=== PATIENT | male | born 1970 | race Caucasian/White ===

== ENCOUNTER → 2017-09-13 | Emergency (ER) | payer BC ==
[~2017-09-13] VITALS: Ht 170.2 cm; Wt 120.3 kg
[~2017-09-13] MED LIST: CIPRO 500MG TA500 MG PO; IBUPROFEN 600M600 MG PO; LORTAB 500 MG-11 TAB PO; VOLTAREN75 MG PO
--- OUTSIDE RECORDS SUMMARY | 2017-09-13 16:21 | External Medical Summary Rpt | CCD ---
Demographics Preferred Language Beninese Marital Status Unknown Gnosticist Affiliation Unknown Race Unknown Ethnic Group Unknown Author Author , JASON GOMEZ Address Unknown Phone Immunization No patient found.
--- OUTSIDE RECORDS SUMMARY | 2017-09-13 16:21 | External Medical Summary Rpt | CCD ---
Author Author [facility] Organization [employer] Address Unknown Phone Unavailable Purpose Continuity of Care Document - through 2016
--- OUTSIDE RECORDS SUMMARY | 2017-09-13 16:21 | External Medical Summary Rpt | CCD ---
Author Author JASON Address Unknown Phone [email or web address] Purpose Continuity of Care Document - through 2016
--- OUTSIDE RECORDS SUMMARY | 2017-09-13 16:21 | External Medical Summary Rpt | CCD ---
Author Author JASON Address Unknown Phone Purpose Continuity of Care Document - through 2016
--- OUTSIDE RECORDS SUMMARY | 2017-09-13 16:21 | External Medical Summary Rpt | CCD ---
Demographics Preferred Language Mauritian Marital Status Unknown Religion Affiliation Unknown Race Unknown Ethnic Group Unknown Author Author , JASON GOMEZ Address Unknown Phone Immunization No patient found.
[2017-09-13 16:37] LABS: URINE BILIRUBIN - DIPSTICK NEGATIVE (NEG); URINE BLOOD NEGATIVE (NEG)
[2017-09-13 17:31] VITALS: BP 140/86
--- NOTE | 2017-09-13 17:31 | Urgent Treatment Center Report ---
History of Present Issue Date/Time Seen by Provider 09/13/17 1704 Visit Reason Pt arrived:Walked Presenting Problem:PT C/O OF RIGHT SIDE FLANK PAIN Location if Accident: Onset of symptoms date/time:/ or onset unknown for:MEDICAL HX UNKNOWN Have you (or family members/close friends) recently traveled outside the [place]? N If Yes, where/when: Have you had exposure to infectious disease within the past month? TB? Other? Specify: c/o right flank pain x 2-3 days. Wakes him from sleep around 2-3 am throbbing then unable to fall back to sleep. Ibuprofen and water and once up, pain resolved and goes on into work. Once back at home and lays down in the evening, pain starts again. This morning, offered pt azo. Urine now orange and for the first day, pain happening during the day. Hx of kidney stones. Reports this is not as severe or as constant and he doesn't believe that is the cause. No fever, nausea, abdominal pain, dysuria or frequency. + urgency. Circumcised and denies possibility of STI. Denies hx of UTIs. No home medications Source patient Exam Limitations no limitations ALLERGIES Uncoded Allergies: INGREDIENT: NO KNOWN - NO KNOWN DRUG ALLERGY (08/13/10) History Medical History General CAD? No Angina: No FL: No Hypertension? No Hyperlipidemia? No CHF? No DVT? No PE? No COPD? No Asthma? No Anemia? No GERD? No Gastric ulcers? No GI Bleed? No Hernia? No Thyroid Problems? No Hypothyroidism? No CVA? No Seizures? No Diabetes? No Renal Insuffiency? No UTI? No Stones? Yes BPH? No GB Disease: No Nephritic Syndrome? No Asplenia? No Hepatitis? No Sickle Cell Disease? No Arthritis? No Migraines? No Cataracts? No Glaucoma? No MRSA? No HIV? No TB? No Anxiety? No Depression? No Cancer? No More? No Immunization HX DT/Tetanus NOT SURE Flu LAST YEAR Pneumonia NEVER Surgical Hx Previous Surgery?Y SCROTAL SURGERY KIDNEY STENT PLACEMENT Family History Family HX Diabetes No CAD No Hypertension No Hyperlipidemia No Cancer Yes TB No Social History Smoking Hx Smoker: Never Smoker Tobacco: No Alcohol Alcohol: No Review of Systems All Other Systems Reviewed and Negative Constitutional see HPI, denies chills, denies malaise, denies weakness Gastrointestinal see HPI, denies diarrhea Genitourinary see HPI. denies: discharge, hematuria, pain (other than flanks), genital lesions. Musculoskeletal see HPI Skin denies lesions, denies lumps, denies rash Psychiatric/Neurological denies headache Physical Exam Vital Signs Vital Signs Date Time Temp Pulse Resp B/P Pulse O2 O2 Flow FiO2 Ox Delivery Rate 09/13 1628 98.0 103 20 140/86 98 General Appearance normal appearance, no apparent distress Respiratory Status No: respiratory distress. Cardiovascular no peripheral edema Gastrointestinal normal bowel sounds, non tender, soft, no organomegaly, no suprapubic tenderness, no bladder distention Back normal inspection, no vertebral tenderness, gait normal, CVA tenderness (R) (mild, more then left), CVA tenderness (L) (minimal) Extremities normal range of motion (BLE) Strength 5 Lower Ext (L), 5 Lower Ext (R) Neurologic alert, oriented x 3 Skin normal color, warm/dry Lymphatic no adenopathy Comments urine cloudy and orange Medical Decision Making LABS/Meds/Orders Pt receiving controlled substance in ED? No Results/Orders Laboratory Tests 09/13/17 1635: Urine Color ORANGE, Urine Appearance Clear, Urine pH 6.0, Ur Specific [place] 1.015, Urine Protein 3+ H, Urine Ketones TRACE H, Urine Blood NEGATIVE, Urine Nitrate POSITIVE H, Urine Bilirubin NEGATIVE, Urine Urobilinogen 1.0, Ur Leukocyte Esterase 1+ H, Urine Glucose 1+ H Orders Procedure Date/time Status CULTURE, URINE 09/13 1721 Active [facility] URINE DIPSTICK 09/13 1635 Complete Departure Departure Time of Disposition 1728 Disposition DC Home or Self Care(routine) Clinical Impression Primary Impression: UTI (urinary tract infection) Qualifiers: Urinary tract infection type: site unspecified Hematuria presence: without hematuria Qualified Code: N39.0 - Urinary tract infection, site not specified Condition STABLE Referrals KC SWARTZ (Family) Be SURE to follow up anytime for new or worsening symptoms, AND in 48 hours for urine culture results AND in 10-14 days to repeat UA and ensure infection resolved Patient Instructions DI for Urinary Tract Infection (UTI) Additional Instructions * increase fluids, Water and NOT soda or tea * Start antibiotic immediately and be sure to take as ordered for the FULL length of time although you should start to see improvement over the next 48 hours. * azo as needed if helping. Remember this will turn your urine ORANGE, this is normal but will stain whatever it gets on. this includes tears and contacts. Try not to wear contacts due to risk of staining orange. * You should not need the azo longer than 48 hours. If so, follow up with primary care to review urine culture and ensure antibiotic is adequate * Be SURE to follow up anytime for new or worsening symptoms, AND in 48 hours for urine culture results AND in 10-14 days to repeat UA and ensure infection resolved * Be sure to let your PCP (or whoever you follow up with) know we sent urine culture so they can request records and ensure you are on the appropriate antibiotic if you are not getting better or getting worse!!! Discharge Counseling Counseled pt/family regarding diagnosis, test results, medications/RX, home care, follow up needs Prescriptions Current Visit Scripts Ciprofloxacin HCl (Cipro 500MG TAB) 500 MG PO BID #20 TAB at 0008
== END ==
LOC: UTC 16:15
PROVIDERS: Nurse Practitioner Family
DX: N39.0 Urinary tract infection, site not specified (principal)